=== PATIENT | male | born 1985 | race Caucasian/White ===

== ENCOUNTER → 2018-03-09 | Outpatient (REF) ==
[~2018-03-09] MED LIST: ACHD5005 PO; DCS100C PO; HYDR-3454 PO; SULF1TAB38 PO
--- NOTE | 2018-03-09 11:38 | Diagnostic Imaging Report ---
INDICATION: Pain status post injury. COMPARISON: None FINDINGS: Frontal and lateral views of the lumbar spine were obtained. Alignment and vertebral heights are maintained. There is no fracture or destructive process. There is mild intervertebral disc height loss at L5-S1. There may be mild sclerotic remodeling of the adjacent endplates as well. Limited views of the abdomen demonstrate nonobstructive bowel gas pattern. IMPRESSION: 1. No acute fracture or dislocation of the lumbar spine. 2. Degenerative changes at the L5-S1 level as described above. Dictated by: Dictated on workstation # [id number]
== END | disposition home or self-care (01) ==
LOC: RAD 11:01
PROVIDERS: ATTEND Family Medicine
CPT/HCPCS: 72100